=== PATIENT | female | born 1940 | race Caucasian/White ===

== ENCOUNTER → 2019-08-29 13:26 | Outpatient (CLI) | payer MEDICARE, OTHER, SELFPAY ==
--- NOTE | 2019-08-29 | DI.MRI.S_ITS ---
PROCEDURE: MR KNEE RT WO CON INDICATIONS: Pain in right knee TECHNIQUE: Noncontrast sagittal PD fast spin echo and T2 fast spin echo with fat saturation, sagittal 3-D FLASH with fat saturation; coronal T1 spin echo and PD fast spin echo with fat saturation, and axial PD fast spin echo with fat saturation through the knee. COMPARISON: [facility], MR, RIGHT KNEE, 04/05/2008, 14:48. [facility], CR, XR KNEE 4+ VIEWS RIGHT, 08/07/2019, 14:06. FINDINGS: Image quality: Excellent. Menisci: Linear horizontal high T2 signal intensity within the posterior horn medial meniscus is present, demonstrating inferior articular surface extension, as before, indicating horizontal tearing. Amorphous high signal intensity within the lateral meniscal body is present, demonstrating superior and inferior articular surface extension, indicating degenerative tearing. Cruciate ligaments: The anterior and posterior cruciate ligaments appear intact. Medial structures: The medial collateral ligament appears intact. Visualized portions of the pes anserinus tendons appear normal. No abnormal bursal fluid. Lateral structures: The lateral collateral ligament, long and short heads of the biceps femoris tendon appear intact. The popliteus tendon appears normal. Iliotibial band appears normal. Anterior structures: The quadriceps and patellar tendons appear intact. Patellar alignment is normal. No femoral trochlear dysplasia or ventral trochlear prominence. No edema in the infrapatellar fat pad. Bones and cartilage: No bone marrow contusions or fractures. There is moderate degenerative marrow edema within the anterior and posterior weightbearing aspects of the medial tibial plateau. Mild degenerative marrow edema within the patellar apex, as well as the medial and lateral patellar facets. Moderate tricompartmental periarticular osteophyte formation. Severe diffuse articular cartilage loss overlies the weightbearing aspects of the medial femoral condyle and medial tibial plateau. Mild articular cartilage loss diffusely overlies the weightbearing aspects of the lateral femoral condyle and lateral tibial plateau. Severe articular cartilage loss overlies the patellar apex, as well as the adjacent portions of the medial and lateral patellar facets. Joint space: There is a small knee joint effusion and a trace Parker's cyst. Small ganglion cyst along the popliteus. Multiple intra-articular loose bodies, predominantly located within the anterior aspect of the lateral compartment, new since the prior examination. Largest of these measures roughly 10 mm diameter. Normal appearing synovial plicae are incidentally noted. IMPRESSION: 1. Progressive tricompartmental osteoarthritis with associated articular cartilage loss. 2. No significant change in posterior horn medial meniscal tearing. 3. New degenerative tearing of the lateral meniscus. 4. Knee joint effusion, and intra-articular loose bodies. Dictated by: Aleja yLnch M.D. on 08/29/2019 at 14:55 Approved by: Aleja Lynch M.D. on 08/29/2019 at 15:00
== END ==
PROVIDERS: Family Provider Family Medicine; PCP Family Medicine; Visit Provider Orthopaedic Surgery
DX: M25.561 Pain in right knee (principal); M17.11 Unilateral primary osteoarthritis, right knee; S83.281A Other tear of lateral meniscus, current injury, right knee, initial encounter; S83.241A Other tear of medial meniscus, current injury, right knee, initial encounter; M25.461 Effusion, right knee
CPT/HCPCS: 73721

== ENCOUNTER → 2019-09-20 13:12 | Outpatient (CLI) | payer MEDICARE, OTHER, SELFPAY ==
[2019-09-20 13:44] LABS: Bacteria Urine None Seen; RBC Urine None Seen (0-5/HPF)
[2019-09-20 15:12] LABS: Hematocrit 40.5 % (36-46); Hemoglobin 13.5 g/dL (12.0-16.0); Mean Corpuscular HGB Conc 33.4 % (30-36); Mean Corpuscular Hemoglobin 30.1 PG (26-34); Mean Corpuscular Volume 90.2 fL (80-100); Platelet Count 273 X10^3/uL (150-400); Red Blood Cell Count 4.49 X10^6/uL (4.0-5.2); Red Cell Distribution Width 14.2 % (11.6-14.8); White Blood Cell Count 9.4 X10^3/uL (4.5-11.0)
[2019-09-20 15:24] LABS: Hemoglobin A1C% w Est Avg Glu 5.3 % (4.0-6.0)
[2019-09-20 15:28] LABS: Appearance Urine UA SL CLOUDY; Bilirubin Urine UA NEGATIVE (NEGATIVE); Color Urine UA YELLOW; Glucose Urine UA NEGATIVE (Negative); Ketones Urine UA NEGATIVE (NEGATIVE); Leukocyte Esterase Urine UA 2+ (NEGATIVE); Nitrite Urine UA NEGATIVE (Negative); Occult Blood Urine UA NEGATIVE (Negative); Protein Urine UA NEGATIVE (Negative); Urobilinogen Urine UA 0.2 E.U./dL (0.2)
[2019-09-20 15:35] LABS: Culture Indicated Urine Cult Not Indicated; Squamous Epithelial Cell Urine 5-10 /HPF (0-5/HPF); WBC Urine 5-10/HPF (0-5/HPF)
[2019-09-20 16:17] LABS: Blood Urea Nitrogen 12 mg/dL (7-17); Calcium 9.3 mg/dL (8.4-10.2); Carbon Dioxide 28 mmol/L (22-32); Chloride 103 mmol/L (98-107); Estimated Glomerular Filt Rate > 60.0 mL/min (>60); Glucose 95 mg/dL (80-110); HEMOLYSIS < 15 (0-50); Potassium 4.1 mmol/L (3.4-5.1); Sodium 138 mmol/L (137-145)
== END ==
PROVIDERS: Family Provider Family Medicine; PCP Family Medicine; Visit Provider Orthopaedic Surgery
DX: Z01.818 Encounter for other preprocedural examination (principal); N39.0 Urinary tract infection, site not specified; R73.9 Hyperglycemia, unspecified
CPT/HCPCS: 36415; 80048; 81001; 83036; 85027; 93005; 93010

== ENCOUNTER 2019-11-10 12:13 | Observation (INO) | payer MEDICARE, OTHER, SELFPAY ==
[2019-10-26 09:52] VITALS: BMI 31.4
[2019-11-09] VITALS (11 sets, daily range): BP systolic 101–126; BP diastolic 39–74; PULSE 76–93; RESP 14–18; TEMP 36.2–36.9; O2SAT 92–98; BMI 30.6
--- NOTE | 2019-11-09 06:00 | DI.RAD.S_ITS ---
PROCEDURE: XR KNEE RT 1TO2V INDICATIONS: Postop right total knee arthroplasty TECHNIQUE: 2 view(s) of the knee acquired. COMPARISON: None. FINDINGS: Bones: Patient is status post knee joint arthroplasty. Hardware components are in expected positions. Visualized bony structures are intact. Soft tissues: Overlying postoperative changes are noted. IMPRESSION: Normal alignment after right total knee arthroplasty with a surgical drain overlying the operative bed. Dictated by: Aly Marin M.D. on 11/09/2019 at 13:40 Approved by: Aly Marin M.D. on 11/09/2019 at 13:40
[2019-11-09] MEDS: ACETAMINOPHEN 325 MG TABLET 975 MG PO (09:08)
[2019-11-09] MEDS: PREGABALIN 75 MG CAPSULE PO (09:09)
[2019-11-09] MEDS: CELECOXIB 200 MG CAPSULE PO (09:09)
[2019-11-09] MEDS: LACTATED RINGERS 1,000 ML 42 ML IV (09:21)
[2019-11-09] MEDS: VANCOMYCIN 1,000 MG/200 ML PIGGYBACK 200 MG IV ×2 (09:35→21:34)
--- NOTE | 2019-11-09 10:17 | P.OP_ITS ---
Operative Date/Time/Diagnoses Date of procedure: 11/09/19 Time of procedure: 10:58 Pre-op diagnosis: Severe right knee OA Post-op diagnosis: same Procedure & Clinicians Procedure: Right total knee arthroplasty Same procedure as scheduled: Yes Indications: The patient has had progressively worsening right knee pain with radiographic changes consistent with arthritis. Non-operative management has failed and the patient has requested total knee replacement. The risks, benefits and alternatives to surgery were discussed with the patient prior to proceeding. Risks discussed included, but were not limited to, failure to relieve pain, stiffness, infection, nerve damage, deep venous thrombosis, pulmonary embolism, stroke, coma, heart attack, permanent paralysis and , as well as the potential need for eventual revision of the prosthetic. Surgeon: Jeni Vargas [employer] Worker: Frandy Matt Anesthesia Type: General Operative Notes Findings: Severe right knee osteoarthritis, good stability Closure Type: primary Specimen(s): none sent Prosthetic devices, grafts, tissues, transplants, or devices: [facility] size 7 femur, size 6 tibia, +9 poly, 38 mm oval patella Applied: drain(s) Estimated Blood Loss (mL): 250 Blood products transfused: none Tourniquet time (min): 69 Procedure in detail: The patient was seen in the pre-operative area, where the patient identified the right knee as the operative site and this was marked with my initials. The patient received pre-operative antibiotics, and was taken to the operating room and placed on the operative table in the supine position. After satisfactory anesthesia, a multimedia editor out was performed. The right leg was encircled with a tourniquet about the proximal thigh, and the leg was prepared from the toes to the tourniquet with ChloroPrep in the usual fashion and draped through sterile drapes. The leg was elevated and exsanguinated with Eschmark bandage and the tourniquet inflated to [250] mmHg pressure. The knee was approached through an approximately 18 cm incision centered over the patella and carried into the knee through a medial parapatellar arthrotomy. A portion of the medial and lateral meniscus was resected. Soft tissue was carefully mobilized around the patella the patella was measured with a caliper. Bone was resected from the patella and the patellar height was reconstituted with up an appropriate sized patellar component. A cover was then placed on the patella. A small amount of additional medial and lateral meniscus was resected. The visionare guide fit well to the distal femur. It looked like an appropriate distal femoral cut and the cut was made without difficulty. The rotation was assessed and the appropriate size femoral guide was placed on the distal femur and finishing cuts were made. There was no evidence of notching. The anterior, posterior and chamfer cuts were then made. The posterior osteophytes and soft tissues were then removed. The posterior capsule was injected with part of a mixture of 60 ml 0.25% Marcaine mixed with 20 ml Exparel for post operative pain control. The remainder of this mixture was injected into the capsule and subcutaneous tissues during cement curing. The tibia was prepared and the visionaire guide fit well to the distal tibia. The rotation was assessed. The patient was placed in extension residual medial and lateral meniscus as well as any residual bone was carefully resected. [No] additional tibia was resected. Hemostasis was achieved especially posteriorly. Additional local was injected into the posterior capsule. The extension gap was assessed and additional releases for gap balancing were performed as necessary. It was checked with the gap butadiene converter operator. The femoral component was trial was placed and the notch was finished. Trial tibial and femoral components were then placed and the knee placed through a range of motion. Range of motion was [0-130], with good stability throughout the range. The trials were then removed, and the tibia was finished. The bone was prepared with pulsatile lavage, and dried with a sponge. Cement was applied and the final prosthetics placed. Excess cement was removed during and after cement curing. A brief Betadine soak was performed. After confirming there was no extruded cement posteriorly, the final tibial insert was placed. The knee was copiously irrigated and the tourniquet deflated. Hemostasis was obtained with the Bovie. A drain was placed and brought out superolaterally. The capsule was closed with interrupted Vicryl suture. The subcutaneous layer was closed with barbed sutures, and the skin with a running 3-0 V-Lock suture and Surgical glue. An Aquacel Ag dressing was applied and the patient was taken to recovery having tolerated the procedure well. Complications: none Post-operative Condition: stable Disposition: Acute Care Plan for aftercare: The patient will be maintained on a standard total knee replacement protocol with weight bearing as tolerated. The patient will receive aspirin and sequential compression devices for DVT prophylaxis. The patient will be discharged home when safe for the home environment.
--- NOTE | 2019-11-09 10:17 | PM.PREOP ---
Pre-operative Note Interval Note History & Physical reviewed/Exam performed by Physician: Yes Changes to H&P: No
[2019-11-09] MEDS: CLINDAMYCIN 900 MG/50 ML PIGGYBACK 50 MG IV (10:29)
[2019-11-09] MEDS: TRANEXAMIC ACID 1,000 MG VIAL 1000 MG INJ ×2 (10:35→12:20)
--- NOTE | 2019-11-09 11:00 | SUR.OPER ---
Supine on padded OR bed, head on pillow, arms secured on padded arm boards at <90 degrees abduction, legs uncrossed, safety belt at thigh, tape over blanket over lower legs.
[2019-11-09] MEDS: BUPIVACAINE LIPOSOME 266 MG/20 ML VIAL INJ (11:09)
[2019-11-09] MEDS: BUPIVACAINE 0.25% W/ EPI (PF) 10 ML VIAL 30 ML INJ (11:10)
[2019-11-09] MEDS: ACETAMINOPHEN 325 MG TABLET 650 MG PO ×2 (14:38→21:34)
[2019-11-09] MEDS: IBUPROFEN 400 MG TABLET PO ×4 (14:39→23:24)
[2019-11-09] MEDS: LACTATED RINGERS 1,000 ML 125 ML IV ×2 (14:39→23:23)
--- NOTE | 2019-11-09 15:00 | PC.NURSE ---
PT ARRIVED TO ICU ( FLOOR CARE PT) SHE REPORTS NO PAIN AT ALL BUT DOES FEEL FAR AWAY, SHE HAS NOT VOIDED YET AND HAS LR AT 125CC/H, LUNGS CLEAR WITH GOOD CMS TO RIGHT LEG- VITAL SIGNS STABLE AND AFEBRILE. PT WITH 2 DAUGHTERS TO HELP POST OP AT HOME BUT SHE DOES STATE THAT SHE HAS 18 STEPS INTO HER HOUSE- TAKING PO WELL
--- NOTE | 2019-11-09 16:49 | PT.IIE ---
Current Diagnoses Unilateral primary osteoarthritis, right knee (11/09/19) Surgery Performed Operation Date: 11/09/19 10:45 Actual Procedures p Total Knee Arthroplasty(Right) - Jeni Vargas MD Surgical History (Last Updated 10/26/19 @ 10:23 by Emily Barron, RN) History of arthroscopy of both knees (Acute) History of (Acute) History of esophagogastroduodenoscopy (EGD) (Acute) Hx laparoscopic cholecystectomy (Acute) Hx of appendectomy (Acute) Hx of bilateral cataract extraction (Acute) Hx of vein stripping (Acute) S/P cervical spinal fusion (Acute 09/07/16) Medical History (Last Updated 10/26/19 @ 10:44 by Emily Barron RN) Asthma due to environmental allergies (Acute) Easy bruisability (Acute) Eczema (Acute) GERD (gastroesophageal reflux disease) (Acute) Hoarseness (Acute) Kidney stones (Acute) Memory deficit (Acute) Migraine headache (Acute) JORGE (obstructive sleep apnea) (Acute) Pneumonia (Acute) Physical Therapy Inpatient Evaluation/Re-Eval M1 PT/OT-IP Prior Functional Status Start: 11/09/19 15:00 Freq: NEEDED Status: Active Protocol: Document 11/09/19 16:03 AW (Rec: 11/09/19 16:48 AW [id number]) Medical Review Prior Functional Status Medical History Reviewed Yes Communication WNL Mobility and Gait Pt's knee pain intensified in August at which time she used crutches intermittently, but she is an independent ambulator at baseline. Activities of Daily Living and IADL's Independent Prior Functional Level (Other details) Pt drives a car and a tractor on her [place] Social History Household Members none Living Arrangements House Number of Floors (Floors) Two Floors Number of Stairs To Enter/Railing? House is in a flood zone, so is raised. stretcher leveler operator helper is 16 steps up (8 + landing + 8) with wide bilateral rails. The stairs are 8 feet wide. Once inside, pt plans to live on the main level as long as needed. Home Environment High Toilet,Walk in Shower Home Equipment Front Wheel Walker,Four Wheel Walker,Straight Cane,Shower Seat without Backrest,Elevator Troubleshooter Additional Social History Comment Jaleesa lives alone but her daughter, Rodrick, will stay with her for one week at discharge. Rodrick provided care for her grandparents before their deaths and feels she has a good understanding of the pt's needs. Rodrick lives in [place]. Pt's other daughter, Jud, lives in [place]. M2 PT-IP Current Condition Start: 11/09/19 15:00 Freq: NEEDED Status: Active Protocol: Document 11/09/19 16:03 AW (Rec: 11/09/19 16:48 AW [id number]) Physical Therapy Current Condition Current Condition Evaluation Date 11/09/19 Treatment Diagnosis s/p R TKA, impaired mobility Onset Date 11/09/19 Weight Bearing Status Weight Bearing Status Weight Bear as Tolerated M3 PT-IP Subjective Start: 11/09/19 15:00 Freq: NEEDED Status: Active Protocol: Document 11/09/19 16:03 AW (Rec: 11/09/19 16:48 AW [id number]) Subjective Physical Therapy Visit Type Type Initial Evaluation Visit Start Time 15:10 Visit Stop Time 15:55 Total Visit Minutes 45 Notes Pt's daughter, Rodrick, present for mobility part of evaluation. Number of BINDING NICKER Visits 0 Physical Therapy Visit Comments Patient Comments Pt does not yet have full sensation but is willing to attempt mobilization with PT Patient Goals Pt hopes to discharge home with family assistance. Therapy Pain Assessment Pain When Pain Assessed During Mobility Pain Present Pain Present Denied Pain M4 PT-IP Mobility and Gait Start: 11/09/19 15:00 Freq: NEEDED Status: Active Protocol: Document 11/09/19 16:03 AW (Rec: 11/09/19 16:48 AW [id number]) PT-Bed Mobility Assessment Supine to Sit Supine to Sit Contact Guard Assistance,Head of Bed Elevated Sit to Supine Sit to Supine Contact Guard Assistance Scooting Scooting to Edge of Bed Minimal Assistance PT-Transfer Assessment Sit to and From Stand Sit to and from Stand Minimal Assistance Equipment Transfer Assistive Device Gait Belt,Front Wheeled Walker Orthotic/Prosthetic Devices or Brace: No Comments Mobility Comments Pt completed supine to sit at right side of bed CGA for support of the operative leg. During the transfer, pt began to complain of cramping sensation in bilateral hamstrings and groin. She required min A x 1 to scoot toward EOB, complaining of lack of sensation. In sitting, pt reported wooziness which subsided after one minute. She completed sit to stand with FWW min A x 1 but felt too dizzy to attempt ambulation. She was returned to sitting where her vitals were stable (BP 126/74 HR 78 before mobility, BP 119/632 HR 84 after standing attempt). Symptoms did not improve in sitting, so pt was returned to supine where symptoms resolved. Pt was positioned in the bed with ice packs applied, call light and table within reach, daughter visiting, and bed alarmed active for safety. Gait Assessment Comments Gait Comments Not assessed due to pt's dizziness symptoms Stair Climbing Assessment Comments Stair Climbing Comments Not assessed due to pt's dizziness symptoms PT-Balance Assessment Sitting Balance and Reactions Static Sitting Balance Ability Good Dynamic Sitting Balance Ability Good Standing Balance and Reactions Static Standing Balance Ability Fair Device Used FWW M5 PT-IP Objective Assessments Start: 11/09/19 15:00 Freq: NEEDED Status: Active Protocol: Document 11/09/19 16:03 AW (Rec: 11/09/19 16:48 AW [id number]) Orientation Orientation/Cognition Level of Alertness Alert Orientation Name,Day of Week,Place, Situation Language Function Ability No Deficits Noted Safety Awareness Understands Safety Issues Memory Description No Deficits Noted Comments Pt presents with signs of anxiety. Gross Range of Motion Upper Extremity ROM Assessment Within Functional Limits Lower Extremity ROM Assessment Right Impaired Strength Upper Extremity Strength Assessment Within Functional Limits Lower Extremity Strength Assessment Right Impaired Comments Strength Comments L LE grossly 4+/5 Coordination Assessment Gross Coordination Gross Coordination WNL Sensation Assessment Sensation Gross Sensation Right LE Impaired Light Touch Impaired Sensation Description Numbness Comments Sensation Comments Pt has not yet recovered full sensation after spinal. M6 PT-IP Treatment Start: 11/09/19 15:00 Freq: NEEDED Status: Active Protocol: Document 11/09/19 16:03 AW (Rec: 11/09/19 16:48 AW [id number]) Physical Therapy Treatment Exercises Exercises Ankle Pumps,Gluteal Sets,Quad Sets,Heel Slides Education Education Provided Precautions,Weight Bearing Status,Post-Op Packet,Safety Other Treatments Other Treatment Performed Educated pt and daughter on PT plan of care, post op exercises, and weightbearing status. M7 PT-IP Assessment and Plan Start: 11/09/19 15:00 Freq: NEEDED Status: Active Protocol: Document 11/09/19 16:03 AW (Rec: 11/09/19 16:48 AW [id number]) PT Summary Assessment and Plan Potential Rehabilitation Potential Good Status of Condition at Evaluation Evolving Summary Impairments Pain,ROM,Strength,Balance, Sensation,Bed Mobility, Transfers,Gait Assessment Summary Jaleesa is a 79 yo woman seen for PT evaluation on POD0 following R TKA. At baseline, she lives alone, is an independent ambulator, and is independent for all ADL/IADL's . Evaluation was limited due to pt's slow return of sensation and lightheadedness with mobility. In order to safely discharge home, pt will need to navigate 16 stairs. PT is unable to offer a discharge recommendation at this time. Will continue to assess. Pt's daughter, Rodrick, will be present to initiate caregiver training on 11/10 at 0900. Goals Bed Mobility Goal Independent Transfer Goal Standby Assistance,Front Wheeled Walker Gait Goal Standby Assistance,Front Wheel Walker Gait Distance 150 Other Goals - up/down 16 steps with unilateral rail and ICT BUSINESS ANALYST/CGA on opposite side Days to Meet Goals 5 Frequency of Treatment Frequency Of Treatment Twice a Day Treatment Plan Physical Therapy Treatment Plan Bed Mobility Training,Transfer Training,Gait Training, Therapeutic Exercise,Balance Retraining,Post Op Education, Discharge Planning,Hot or Cold Pack,Manual Therapy Other Recommendations and Next Treatment assess transfers and gait; Focus initiate caregiver training; attempt stairs if tolerated Recommendations To Nursing Amount of Assist Needed 1 Person Assist,2 Person Assist Discharge Recommendations PT Discharge Recommendations Home with 24/7 Assist, Outpatient PT Other Discharge Recommendations Tentatively home with 24/7 and outpatient PT based on limited assessment. Will continue to refine recommendation.
[2019-11-09] MEDS: OXYCODONE/ACETAMINOPHEN 5/325 TABLET 1 TAB PO (18:23)
[2019-11-09] MEDS: CYCLOBENZAPRINE 5 MG TABLET PO (18:37)
[2019-11-09] MEDS: DOCUSATE 100 MG CAPSULE PO (21:34)
[2019-11-09] MEDS: ASPIRIN EC 81 MG TABLET PO (21:35)
[2019-11-09] MEDS: LORazepam 1 MG TABLET PO (21:49)
[2019-11-10 04:55] LABS: Hematocrit 34.5 % (36-46); Hemoglobin 11.6 g/dL (12.0-16.0)
[2019-11-10 04:56] VITALS: BP 106/51; PULSE 80; RESP 18; TEMP 37.2; O2SAT 94
[2019-11-10] MEDS: IBUPROFEN 400 MG TABLET PO ×5 (06:45→21:50)
[2019-11-10 07:53] VITALS: BP 100/45; PULSE 81; RESP 16; TEMP 36.7; O2SAT 96
--- NOTE | 2019-11-10 07:56 | P.PN_ITS ---
Subjective Subjective Date Patient Seen: 11/10/19 Time Patient Seen: 07:56 Interval history: Hospital day 2, postop day 1 following right total knee arthroplasty by josé Vargas MD. Patient feels she is doing well. She did work briefly with physical therapy yesterday. It's been using ibuprofen 400 mg and Tylenol primarily for pain. She has had 1 dose of oxycodone. Hemovac noted drainage of 230, 115, 70 per shift and 45 during the past 2 hours. She is a [facility] patient. Scheduled go to [facility] in [place]. She does have a daughter who is going to be staying with her. Patient anticipates possible discharge home either later today or tomorrow morning. Exam Vital Signs (past 8 hours): - 11/10/19 04:56 11/10/19 07:53 Temperature 98.9 F 98.0 F Pulse Rate 80 81 Respiratory Rate 18 16 Blood Pressure 106/51 L 100/45 L Pulse Oximetry 94 96 Oxygen Delivery Method Room Air Oxygen Flow Rate 0 Narrative Exam Narrative: Alert, oriented no acute distress sitting in chair. Right leg. Kevin wrap an Aquacel dressing to right knee is dry without drainage or inflammation. Mild edema. Hemovac placed. No calf pain or swelling. Good pulses distally. Objective Labs Result Diagrams: 11/10/19 04:40 Labs: Laboratory Results - last 24 hr 11/09/19 11/10/19 13:15 04:40 Hgb 11.6 L Hct 34.5 L Nasal Screen MRSA (PCR) Negative for mrsa Assessment & Plan Post-op Postoperative Procedures: Procedures Operation Date: 11/09/19 10:45 Actual Procedures Side Surgeon p Total Knee Arthroplasty Right Jeni A MD Sam plan: Patient will continue working feet with PT today. Will keep Hemovac in place till home later today to see if drainage decreases. I anticipate discharge home either later today or tomorrow morning.
[2019-11-10] MEDS: ACETAMINOPHEN 325 MG TABLET 650 MG PO ×3 (08:19→21:50)
[2019-11-10] MEDS: ASPIRIN EC 81 MG TABLET PO ×2 (08:21→21:50)
[2019-11-10] MEDS: OXYCODONE/ACETAMINOPHEN 5/325 TABLET 1 TAB PO ×2 (08:23→12:46)
[2019-11-10] MEDS: DOCUSATE 100 MG CAPSULE PO ×2 (08:23→21:50)
[2019-11-10] MEDS: POLYETHYLENE GLYCOL 3350 17 GM POWD.PACK PO (08:41)
[2019-11-10] MEDS: CYCLOBENZAPRINE 5 MG TABLET PO ×2 (08:41→18:23)
--- NOTE | 2019-11-10 09:55 | PC.NURSE ---
PT MEDICATED THIS AM WITH BREAKFAST MEAL AND WORKED WITH PHYSICAL THERAPY- SHE DID WELL AND COMPLETED STAIRS, SALINE LOCKED AND HEMOVAC REMAINS UNTIL THIS AFTERNOON
[2019-11-10 11:55] VITALS: BP 113/53; PULSE 90; RESP 16; TEMP 37.1; O2SAT 95
--- NOTE | 2019-11-10 14:07 | PC.NURSE ---
PT AMBULATING WITH ONLY SBA AND USE OF WALKER- PERCOCET EFFECTIVE FOR PAIN ALONG WITH ROUTINE SCHEDULED IBUPROFEN/TYLENOL- VOIDING WELL AND TAKING PO WITHOUT PROBLEM- HEMOVAC REMOVED AND SMALL DRESSING PLACED THEN WRAPPED AGAIN WITH VIOLET WRAP TO PROVIDE COMPRESSION OF RIGHT LOWER EXTREMITY
--- NOTE | 2019-11-10 14:16 | CM.DANOTE ---
DCP/Assessment: Reviewed chart. Patient is 79yr old female admitted to [facility] for right TKA performed on 11-09-[address] Vargas. PCP is Dr. Taylor. Primary payor is 1)Medicare 2)[facility]. Met with patient explained CM/SW role. Patient up in chair at time of visit. Patient reports that she resides alone and plans to discharge home when medically stable. Patient has 2 supportive daughter's whom plan to help during patient's recovery. 1 daughter/Rodrick at bedside and confirms that she will be staying with patient at her residence for a few weeks. Patient has all needed DME. Outpatient therapy arranged with [facility]. No additional needs identified at this time. P: Home when medically stable. FAUSTINA Rodriguez Discharge Planning/Care Management CM Discharge Assessment Start: 11/10/19 14:07 Freq: Status: Active Protocol: Document 11/10/19 14:07 KJS (Rec: 11/10/19 14:15 KJS [id number]) Discharge Planning Assessment Assigned Salesperson Corsets FAUSTINA Rodriguez Contact Information Rodrick (daughter) [phone] Advance Directives? No Advance Directives on File No History Provided By Patient,Family Member,Medical Record Prior Living Arrangements House Household Members none Independent with ADL's Yes Is patient alert and oriented? Yes Caregiver for Another No DME Already Rented / Owned FWW / Walker Patient/Family Preference OP PT Therapy Barriers to Discharge No Discharge Plan Home Transportation Arrangement Family to provide transport. Whiteboard Updated in Patient Room with Yes name and ext. # of Salesperson Corsets Review Status In Process Next Review Type Continued Stay Review Pre-Anesthesia Assessment Start: 10/26/19 09:52 Freq: Status: Complete Protocol: Document 10/26/19 09:52 CAB (Rec: 10/26/19 10:32 CAB [id number]) Pre-Anesthesia Assessment Patient Information Reviewed Via Phone Assessment Assessment Completed With Patient Diagnostic Results BMP/CMP,CBC,EKG Comment Labs/EKG @ 09/20/19 Primary Care Provider Jhon Taylor Seen Specialist in Last 12 Months Yes Specialist Seen Orthopedist,Urologist Primary Language Bengali Pastry Cook Helper Required No Height 177.8 cm Weight 99.337 kg Body Mass Index (BMI) 31.4 Hearing Ability Normal Visual Assist Magnifying Glass Dentition Type Teeth, Natural Present Barriers to Learning Auditory,Memory Other Aids No Hx Anesthesia Reactions Yes: Hypotension s/p kidney surgery, trouble waking up after neck fusion Hx Family Anesthesia Reaction No Hx Malignant Hyperthermia No Hx Blood Transfusions Yes: 4 units r/t hemorrhage 1975 Hx Blood Transfusion Reaction No Anesthesia Review Requested No alcohol intake current alcohol intake frequency holidays/special occasions only Smoking Status Never smoker Substance Use Type does not use Pain Present Pain Reported Musculoskeletal Symptoms Abnormal Gait,Back Pain, Difficulty Walking,Joint Pain, Limited Range of Motion,Muscle Weakness,Neck Pain History of Falling (Recent or History of Yes ) Patient is completely paralyzed or No completely immobile Mental Status Oriented to own ability Is patient on oxygen? No Does patient have AMBRIZ/SOB Yes: r/t Asthma Hx Sleep Apnea No Currently Taking a Beta Mehrdad No Can You Climb a Flight of Stairs Without Yes SOB Hx Chest Pain No Hx SOB Yes: r/t Asthma Hx Syncope or Dizziness No Anti-Coagulant Therapy No Has a Assistant Child Care Teacher No Cardiac Testing No Hx Pacemaker/ICD No Pacemaker Rep Required? No Cardiac Clearance Received Not Applicable Diet Type At Home Regular dysphagia No Bladder Pattern Frequency Urinary Catheter Present No Hx Urinary Self Catheterization No Diabetes No Patient No Lactating No Presence of External or Internal Medical Yes: Bilat eye lens, neck Devices fusion hardware Have you traveled outside the [facility] States in the last 30 days? Marital Status / Lives With none Prior Living Arrangements House Number of Floors (Floors) 3 or More Floors Support System Child/Children Does the Patient Have Assistance After Yes Surgery Patient Discharge Plan Description Return Home Comment Pt advised 1-2 night length of stay per surgeon's office Feels Safe in Current Environment Yes Been Physically Hurt or Threatened By a No Person in Current Environment Do you have thoughts of harming yourself None or others? Are you currently considering suicide? No Do you have a plan to hurt yourself or No Plan others? Do You Have Any Spiritual Beliefs That No May Affect Your HC Choices? Do You Have Any Cultural Practices That No May Affect Your HC Choices? Who Can We Speak to About Patient's Care Family, friends Identifying Code for Release of Patient Declines to issue Information Health Care Proxy/Next of Kin Jud (daughter) Rodrick ( daughter) Health Care Proxy Phone Number Jud: [phone] Rodrick: [phone] Emergency Contact Name Jud (daughter) Rodrick ( daughter) Emergency Contact Phone Number Jud: [phone] Rodrick: [phone] Advance Directives? No Power of Assembler Installer Structures Yes: Pt unsure which daughter it is PAC Instructions Do not shave/clip surgical site,Durable medical equipment ,Medications to take/avoid, Nasal antibiotic,No ETOH/ petroleum product on skin DOS, NPO,Post-op transportation,Pre -surgical wash,Sturdy shoes/ comfortable clothes,Do not bring valuables and remove jewelry
--- NOTE | 2019-11-10 14:28 | PT.IPTN ---
Current Diagnoses Unilateral primary osteoarthritis, right knee (11/09/19) Surgery Performed Operation Date: 11/09/19 10:45 Actual Procedures p Total Knee Arthroplasty(Right) - Jeni Vargas MD Physical Therapy Treatment Note M2 PT-IP Current Condition Start: 11/09/19 15:00 Freq: NEEDED Status: Active Protocol: Document 11/09/19 16:03 AW (Rec: 11/09/19 16:48 AW [id number]) Physical Therapy Current Condition Current Condition Evaluation Date 11/09/19 Treatment Diagnosis s/p R TKA, impaired mobility Onset Date 11/09/19 Weight Bearing Status Weight Bearing Status Weight Bear as Tolerated M3 PT-IP Subjective Start: 11/09/19 15:00 Freq: NEEDED Status: Active Protocol: Document 11/10/19 09:00 LJ (Rec: 11/10/19 14:28 LJ [id number]) Subjective Physical Therapy Visit Type Type Treatment Note Visit Start Time 09:00 Visit Stop Time 09:44 Total Visit Minutes 44 Number of ALCOHOLISM WORKER Visits 1 Physical Therapy Visit Comments Patient Comments Pt has full sensation of LE and is wanting to have caregiver training with her daughter who is present Patient Goals Pt hopes to discharge home with family assistance. Therapy Pain Assessment Pain When Pain Assessed During Mobility Pain Present Pain Present Pain Reported M4 PT-IP Mobility and Gait Start: 11/09/19 15:00 Freq: NEEDED Status: Active Protocol: Document 11/10/19 09:00 LJ (Rec: 11/10/19 14:28 LJ [id number]) PT-Transfer Assessment Sit to and From Stand Sit to and from Stand Standby Assistance,Contact Guard Assistance,Use of Upper Extremities Equipment Transfer Assistive Device Gait Belt,Front Wheeled Walker Transfers Transfer Destination Chair Transfer Technique Forward/Backward Scoot Transfer Ability Level of Assist Standby Assistance,Contact Guard Assistance,Use of Upper Extremities Comments Mobility Comments Pt in chair needing cueing for hand placement on chair rather than on FWW for assist in standing. Pt c/o pain but willing to ambulate in hallway . Minimal cueing for FWW use and posture while using it. Pt is steady on her feet when moving around the room and in hallway. Gait Assessment Gait Gait Assistance Required: Standby Assistance,Contact Guard Assist Distance (Feet) 400 Able to Maintain Weight Bearing Status Yes During Gait Assistive Devices Assistive Device Gait Belt,Front Wheeled Walker Orthotic/Prosthetic Devices or Brace: No Gait Deviations General Gait Pattern Antalgic,Decreased Stride Length,Decreased Feet Clearance Factors Limiting Gait Function Factors Limiting Gait Function Decreased Activity Tolerance, Decreased Strength,Limited Range of Motion,Pain,Poor Balance Comments Gait Comments Pt amabulated CGA-SBA from ICU to public stairs next to emergency entrance and returned 400+ feet. Good attempt with normalizing gait pattern paying close attention to heel strike, knee flexion, and foot clearance. Stair Climbing Assessment Evaluation Level of Assist On Stairs Contact Guard Assistance,1 Person Assistance Devices Stair Climbing Assistive Devices Left Railing,Right Railing Technique/Endurance Stair Climbing Direction Ascend and Descend Stair Climbing Technique Step to Step Number of Steps Climbed 16 Stair Climbing Set # Repetitions (reps) 1 Comments Stair Climbing Comments Pt up/down hallway stairs with use of railing mostly on right side. Able to climb with steady step to pattern paying attention to foot placement and pacing. M5 PT-IP Objective Assessments Start: 11/09/19 15:00 Freq: NEEDED Status: Active Protocol: Document 11/09/19 16:03 AW (Rec: 11/09/19 16:48 AW [id number]) Orientation Orientation/Cognition Level of Alertness Alert Orientation Name,Day of Week,Place, Situation Language Function Ability No Deficits Noted Safety Awareness Understands Safety Issues Memory Description No Deficits Noted Comments Pt presents with signs of anxiety. Gross Range of Motion Upper Extremity ROM Assessment Within Functional Limits Lower Extremity ROM Assessment Right Impaired Strength Upper Extremity Strength Assessment Within Functional Limits Lower Extremity Strength Assessment Right Impaired Comments Strength Comments L LE grossly 4+/5 Coordination Assessment Gross Coordination Gross Coordination WNL Sensation Assessment Sensation Gross Sensation Right LE Impaired Light Touch Impaired Sensation Description Numbness Comments Sensation Comments Pt has not yet recovered full sensation after spinal. M6 PT-IP Treatment Start: 11/09/19 15:00 Freq: NEEDED Status: Active Protocol: Document 11/10/19 09:00 LJ (Rec: 11/10/19 14:28 LJ [id number]) Physical Therapy Treatment Exercises Exercises Ankle Pumps,Gluteal Sets,Quad Sets,Heel Slides Education Education Provided Precautions,Safety Other Treatments Other Treatment Performed Educated pt and daughter on PT plan of care, post op exercises, and weightbearing status. Performed caregiver training with one of the daughters M7 PT-IP Assessment and Plan Start: 11/09/19 15:00 Freq: NEEDED Status: Active Protocol: Document 11/10/19 09:00 RAVEN (Rec: 11/10/19 14:28 RVAEN [id number]) PT Summary Assessment and Plan Potential Rehabilitation Potential Good Status of Condition at Evaluation Evolving Summary Impairments Pain,ROM,Strength,Balance,Gait ,Activity Tolerance Assessment Summary pt did an exceptional job with gait normalization and stair training ambulating 400+ feet then ascending and descending 15 stairs with one railing. Pt 's daughter present for caregiver training. Pt has completed all goals for discharge. Goals Bed Mobility Goal Independent Transfer Goal Standby Assistance,Front Wheeled Walker Gait Goal Standby Assistance,Front Wheel Walker Gait Distance 150 Other Goals - up/down 16 steps with unilateral rail and POSTING CLERK/CGA on opposite side Frequency of Treatment Frequency Of Treatment Twice a Day Treatment Plan Physical Therapy Treatment Plan Bed Mobility Training,Transfer Training,Gait Training, Therapeutic Exercise,Balance Retraining,Post Op Education, Discharge Planning,Hot or Cold Pack,Manual Therapy Recommendations To Nursing Amount of Assist Needed Standby Assistance,1 Person Assist Discharge Recommendations PT Discharge Recommendations Home with 07/06 Assist, Outpatient PT
[2019-11-10 16:15] VITALS: BP 132/57; PULSE 81; RESP 16; TEMP 36.5; O2SAT 96
--- NOTE | 2019-11-10 17:04 | PT.IPTN ---
Current Diagnoses Unilateral primary osteoarthritis, right knee (11/09/19) Surgery Performed Operation Date: 11/09/19 10:45 Actual Procedures p Total Knee Arthroplasty(Right) - Jeni Vargas MD Physical Therapy Treatment Note M2 PT-IP Current Condition Start: 11/09/19 15:00 Freq: NEEDED Status: Active Protocol: Document 11/09/19 16:03 AW (Rec: 11/09/19 16:48 AW [id number]) Physical Therapy Current Condition Current Condition Evaluation Date 11/09/19 Treatment Diagnosis s/p R TKA, impaired mobility Onset Date 11/09/19 Weight Bearing Status Weight Bearing Status Weight Bear as Tolerated M3 PT-IP Subjective Start: 11/09/19 15:00 Freq: NEEDED Status: Active Protocol: Document 11/10/19 17:03 LJ (Rec: 11/10/19 17:04 LJ [id number]) Subjective Physical Therapy Visit Type Type Patient Refusal Notes Pt states she was just up with nursing for a walk M4 PT-IP Mobility and Gait Start: 11/09/19 15:00 Freq: NEEDED Status: Active Protocol: Document 11/10/19 09:00 LJ (Rec: 11/10/19 14:28 LJ [id number]) PT-Transfer Assessment Sit to and From Stand Sit to and from Stand Standby Assistance,Contact Guard Assistance,Use of Upper Extremities Equipment Transfer Assistive Device Gait Belt,Front Wheeled Walker Transfers Transfer Destination Chair Transfer Technique Forward/Backward Scoot Transfer Ability Level of Assist Standby Assistance,Contact Guard Assistance,Use of Upper Extremities Comments Mobility Comments Pt in chair needing cueing for hand placement on chair rather than on FWW for assist in standing. Pt c/o pain but willing to ambulate in hallway . Minimal cueing for FWW use and posture while using it. Pt is steady on her feet when moving around the room and in hallway. Gait Assessment Gait Gait Assistance Required: Standby Assistance,Contact Guard Assist Distance (Feet) 400 Able to Maintain Weight Bearing Status Yes During Gait Assistive Devices Assistive Device Gait Belt,Front Wheeled Walker Orthotic/Prosthetic Devices or Brace: No Gait Deviations General Gait Pattern Antalgic,Decreased Stride Length,Decreased Feet Clearance Factors Limiting Gait Function Factors Limiting Gait Function Decreased Activity Tolerance, Decreased Strength,Limited Range of Motion,Pain,Poor Balance Comments Gait Comments Pt amabulated CGA-SBA from ICU to public stairs next to emergency entrance and returned 400+ feet. Good attempt with normalizing gait pattern paying close attention to heel strike, knee flexion, and foot clearance. Stair Climbing Assessment Evaluation Level of Assist On Stairs Contact Guard Assistance,1 Person Assistance Devices Stair Climbing Assistive Devices Left Railing,Right Railing Technique/Endurance Stair Climbing Direction Ascend and Descend Stair Climbing Technique Step to Step Number of Steps Climbed 16 Stair Climbing Set # Repetitions (reps) 1 Comments Stair Climbing Comments Pt up/down hallway stairs with use of railing mostly on right side. Able to climb with steady step to pattern paying attention to foot placement and pacing. M5 PT-IP Objective Assessments Start: 11/09/19 15:00 Freq: NEEDED Status: Active Protocol: Document 11/09/19 16:03 AW (Rec: 11/09/19 16:48 AW [id number]) Orientation Orientation/Cognition Level of Alertness Alert Orientation Name,Day of Week,Place, Situation Language Function Ability No Deficits Noted Safety Awareness Understands Safety Issues Memory Description No Deficits Noted Comments Pt presents with signs of anxiety. Gross Range of Motion Upper Extremity ROM Assessment Within Functional Limits Lower Extremity ROM Assessment Right Impaired Strength Upper Extremity Strength Assessment Within Functional Limits Lower Extremity Strength Assessment Right Impaired Comments Strength Comments L LE grossly 4+/5 Coordination Assessment Gross Coordination Gross Coordination WNL Sensation Assessment Sensation Gross Sensation Right LE Impaired Light Touch Impaired Sensation Description Numbness Comments Sensation Comments Pt has not yet recovered full sensation after spinal. M6 PT-IP Treatment Start: 11/09/19 15:00 Freq: NEEDED Status: Active Protocol: Document 11/10/19 09:00 RAVEN (Rec: 11/10/19 14:28 [id number]) Physical Therapy Treatment Exercises Exercises Ankle Pumps,Gluteal Sets,Quad Sets,Heel Slides Education Education Provided Precautions,Safety Other Treatments Other Treatment Performed Educated pt and daughter on PT plan of care, post op exercises, and weightbearing status. Performed caregiver training with one of the daughters M7 PT-IP Assessment and Plan Start: 11/09/19 15:00 Freq: NEEDED Status: Active Protocol: Document 11/10/19 09:00 RAVEN (Rec: 11/10/19 14:28 [id number]) PT Summary Assessment and Plan Potential Rehabilitation Potential Good Status of Condition at Evaluation Evolving Summary Impairments Pain,ROM,Strength,Balance,Gait ,Activity Tolerance Assessment Summary pt did an exceptional job with gait normalization and stair training ambulating 400+ feet then ascending and descending 15 stairs with one railing. Pt 's daughter present for caregiver training. Pt has completed all goals for discharge. Goals Bed Mobility Goal Independent Transfer Goal Standby Assistance,Front Wheeled Walker Gait Goal Standby Assistance,Front Wheel Walker Gait Distance 150 Other Goals - up/down 16 steps with unilateral rail and POLICE CAPTAIN/CGA on opposite side Frequency of Treatment Frequency Of Treatment Twice a Day Treatment Plan Physical Therapy Treatment Plan Bed Mobility Training,Transfer Training,Gait Training, Therapeutic Exercise,Balance Retraining,Post Op Education, Discharge Planning,Hot or Cold Pack,Manual Therapy Recommendations To Nursing Amount of Assist Needed Standby Assistance,1 Person Assist Discharge Recommendations PT Discharge Recommendations Home with 07/06 Assist, Outpatient PT
[2019-11-10] MEDS: OXYCODONE IR 5 MG TABLET PO (18:23)
[2019-11-10 20:44] VITALS: BP 118/55; PULSE 82; RESP 17; O2SAT 95
[2019-11-10] MEDS: LORazepam 1 MG TABLET PO (21:50)
[2019-11-11] MEDS: IBUPROFEN 400 MG TABLET PO ×4 (01:31→12:48)
[2019-11-11] MEDS: OXYCODONE IR 5 MG TABLET PO ×3 (01:44→12:49)
[2019-11-11 01:53] VITALS: BP 129/60; PULSE 98; RESP 16; TEMP 36; O2SAT 96
[2019-11-11 06:08] VITALS: BP 118/62; PULSE 87; RESP 16; TEMP 37.2; O2SAT 95
[2019-11-11 07:37] VITALS: BP 112/51; PULSE 86; RESP 16; TEMP 36.9; O2SAT 95
[2019-11-11] MEDS: ACETAMINOPHEN 325 MG TABLET 650 MG PO (08:06)
[2019-11-11] MEDS: POLYETHYLENE GLYCOL 3350 17 GM POWD.PACK PO (08:06)
[2019-11-11] MEDS: DOCUSATE 100 MG CAPSULE PO (08:06)
[2019-11-11] MEDS: ASPIRIN EC 81 MG TABLET PO (08:06)
--- NOTE | 2019-11-11 10:15 | P.DS_ITS ---
History of Present Illness History of Present Illness Date Patient Seen: 11/11/19 Time Patient Seen: 10:15 Chief complaint: [address] Right TKA Narrative: Patient's pain is been moderate to severe. Denies fever chills. No shortness of breath or chest pain. Patient has been up working with physical therapy and has also worked on climbing stairs. Patient has her daughter home to assist her. Discharge Providers Provider Date of admission: 11/09/19 08:26 Discharge Date: 11/11/19 Primary care physician: Jhon Taylor MD Consults: 11/09/19 06:00 Consult to Anesthesiology Routine Comment: Consulting Provider: Anesthesiologist Reason for consultation: Regional block for post operative pain control 11/09/19 13:27 Consult to Discharge Planning Routine Comment: Consult to Physical Therapy Evaluate & Treat Comment: Physician Instructions: postop TKA protocol Consult to Respiratory Therapy Evaluate & Treat Comment: Physician Instructions: Evaluate and treat Discharge provider: Frandy Matt PA-C Summary Hospital Course Discharge Diagnosis: Pre-op diagnosis: Severe right knee OA Post-op diagnosis: same Hospital Course: Procedure: Right total knee arthroplasty Same procedure as scheduled: Yes Indications: The patient has had progressively worsening right knee pain with radiographic changes consistent with arthritis. Non-operative management has failed and the patient has requested total knee replacement. The risks, benefits and alternatives to surgery were discussed with the patient prior to proceeding. Risks discussed included, but were not limited to, failure to relieve pain, stiffness, infection, nerve damage, deep venous thrombosis, pulmonary embolism, stroke, coma, heart attack, permanent paralysis and , as well as the potential need for eventual revision of the prosthetic. Surgeon: Jeni Vargas Hydropress Operator: Frandy Matt Anesthesia Type: General Operative Notes Findings: Severe right knee osteoarthritis, good stability Closure Type: primary Specimen(s): none sent Prosthetic devices, grafts, tissues, transplants, or devices: Vargas and Nephew [employer] BCS 2 size 7 femur, size 6 tibia, +9 poly, 38 mm oval patella Applied: drain(s) Estimated Blood Loss (mL): 250 Blood products transfused: none Tourniquet time (min): 69 Patient admitted to the hospital for right total knee arthroplasty. Patient consented to the same. Patient taken to the operating room underwent right total knee arthroplasty. Patient back in her room recovering well as in stable condition. Patient has worked with physical therapy. She will be discharged home in stable condition. Patient has her daughter home to assist her. Status at Discharge Cognitive/behavioral status at discharge: at baseline, oriented Functional status at discharge: uses cane/walker Overall status at discharge: patient is progressing back to baseline Time Spent with Patient Time spent: Less than 30 minutes Exam Vital Signs (past 8 hours): - 11/11/19 06:08 11/11/19 07:37 Temperature 98.9 F 98.5 F Pulse Rate 87 86 Respiratory Rate 16 16 Blood Pressure 118/62 112/51 L Pulse Oximetry 95 95 Oxygen Delivery Method Room Air Oxygen Flow Rate 0 Narrative Exam Narrative: Pleasant 79-year-old female resting comfortably in bed in no apparent distress. Right knee dressing is clean, dry and intact. Calf is soft and nontender. Motor functions intact distally. Sensation intact to light t ouch distal right lower extremity. Objective Labs Result Diagrams: 11/10/19 04:40 Discharge Plan Discharge Plan Patient Disposition: Home Discharge orders & Medications Prescriptions: Continued albuterol sulfate [Proventil HFA] 90 MCG/PUFF HFA aerosol inhaler 2 puff INH Q4H PRN (Reason: Shortness Of Breath) Qty: 0 RF: 0 azelastine 137 MCG/0.137 ML aerosol,spray 1 spray Intranasal DAILY PRN (Reason: Seasonal allergies) Qty: 0 RF: 0 fluticasone propionate 16 GM spray,suspension 1 spray Intranasal QDAY PRN (Reason: seasonal allergies) Qty: 0 RF: 0 omeprazole 20 MG capsule,delayed release(DR/EC) 20 mg PO DAILY PRN (Reason: GERD) Qty: 0 RF: 0 lorazepam 1 MG tablet 1 mg PO HS PRN (Reason: Sleep, anxiety) Qty: 0 RF: 0 ibuprofen 200 mg Capsule 200 mg PO Q6H PRN (Reason: Pain) RF: 0 Follow up/Referrals: Jhon Taylor MD [Primary Care Provider] - Jeni Vargas MD [Physician] - (1 wk) Diet/Activity/Treatments Diet: Diet as Tolerated Activity: Weightbearing as tolerated Cold/Heat Therapy: Apply ice as needed Other treatments: Ibuprofen 400 mg every 4 hours, Tylenol 500 mg every 4 hours, aspirin 81 mg twice a day. Oxycodone 5 mg 1-3 tabs as needed every 3 hours for pain Skin/Wound/Dressing Care Report to your healthcare provider any signs of infection, such as:: chills, fever, increased pain, unusual drainage and unusual redness Dressing: Keep dressing clean and dry, may remove Kevin wrap 48-72 hours after surgery Visit Report/Discharge Packet Instructions: DI for Knee Replacement, DI for Prescription Opioid Use Discharge Data Primary Care Provider: Jhon Taylor
--- NOTE | 2019-11-11 11:50 | PT.IPTN ---
Current Diagnoses Unilateral primary osteoarthritis, right knee (11/09/19) Surgery Performed Operation Date: 11/09/19 10:45 Actual Procedures p Total Knee Arthroplasty(Right) - Jeni Vargas MD Physical Therapy Treatment Note M2 PT-IP Current Condition Start: 11/09/19 15:00 Freq: NEEDED Status: Active Protocol: Document 11/09/19 16:03 AW (Rec: 11/09/19 16:48 AW [id number]) Physical Therapy Current Condition Current Condition Evaluation Date 11/09/19 Treatment Diagnosis s/p R TKA, impaired mobility Onset Date 11/09/19 Weight Bearing Status Weight Bearing Status Weight Bear as Tolerated M3 PT-IP Subjective Start: 11/09/19 15:00 Freq: NEEDED Status: Active Protocol: Document 11/11/19 11:50 AB (Rec: 11/11/19 13:42 AB [id number]) Subjective Physical Therapy Visit Type Type Treatment Note Visit Start Time 11:50 Visit Stop Time 12:19 Total Visit Minutes 29 Number of HAR[employer]KER Visits 0 Physical Therapy Visit Comments Patient Comments agreeable to do PT Therapy Pain Assessment Pain When Pain Assessed At Rest Pain Present Pain Present Pain Reported Location right knee Intensity 8 Scale Used Numeric (1 - 10) Pain Management Techniques Modification of Treatment,Re- positioning,Timing of Activity with Medications M4 PT-IP Mobility and Gait Start: 11/09/19 15:00 Freq: NEEDED Status: Active Protocol: Document 11/11/19 11:50 AB (Rec: 11/11/19 13:42 AB [id number]) PT-Bed Mobility Assessment Rolling Level of Assist Standby Assistance PT-Transfer Assessment Sit to and From Stand Sit to and from Stand Contact Guard Assistance,1 Person Assistance,Use of Upper Extremities Equipment Transfer Assistive Device Gait Belt,Front Wheeled Walker Orthotic/Prosthetic Devices or Brace: No Comments Mobility Comments completed sit<>stand x 2 reps and cues for techniques. pt requires cues with all tasks for techniques and safety. pt has difficulty remembering and does not remember her doing stair climbing / caregiver training with daughter yesterday. Gait Assessment Gait Gait Assistance Required: Standby Assistance,Contact Guard Assist Distance (Feet) 100 Able to Maintain Weight Bearing Status Yes During Gait Assistive Devices Assistive Device Gait Belt,Front Wheeled Walker Orthotic/Prosthetic Devices or Brace: No Gait Deviations General Gait Pattern Antalgic,Decreased Stride Length,Decreased Feet Clearance Factors Limiting Gait Function Factors Limiting Gait Function Decreased Strength,Limited Range of Motion,Pain,Poor Balance,Poor Safety Awareness Stair Climbing Assessment Evaluation Level of Assist On Stairs Minimal Assistance,Moderate Assistance,1 Person Assistance Devices Stair Climbing Assistive Devices Left Railing,Right Railing Technique/Endurance Stair Climbing Direction Ascend and Descend Stair Climbing Technique Step to Step Number of Steps Climbed 1 Stair Climbing Set # Repetitions (reps) 2 Comments Stair Climbing Comments pt stated that she only has one rail to use to get in/out of the house. pt refused to go out of the ICU unit to do stair climbing but agreed to do it in room with a step stool. completed up/down step stool using L rail mod A and cues. educated pt and instructed to hold on to rail with B hands and completed with R rail CGA and cues. pt agreed to sit up on chair afterwards. positioned on chair. set up lunch table. call light within reach. M5 PT-IP Objective Assessments Start: 11/09/19 15:00 Freq: NEEDED Status: Active Protocol: Document 11/09/19 16:03 AW (Rec: 11/09/19 16:48 AW [id number]) Orientation Orientation/Cognition Level of Alertness Alert Orientation Name,Day of Week,Place, Situation Language Function Ability No Deficits Noted Safety Awareness Understands Safety Issues Memory Description No Deficits Noted Comments Pt presents with signs of anxiety. Gross Range of Motion Upper Extremity ROM Assessment Within Functional Limits Lower Extremity ROM Assessment Right Impaired Strength Upper Extremity Strength Assessment Within Functional Limits Lower Extremity Strength Assessment Right Impaired Comments Strength Comments L LE grossly 4+/5 Coordination Assessment Gross Coordination Gross Coordination WNL Sensation Assessment Sensation Gross Sensation Right LE Impaired Light Touch Impaired Sensation Description Numbness Comments Sensation Comments Pt has not yet recovered full sensation after spinal. M6 PT-IP Treatment Start: 11/09/19 15:00 Freq: NEEDED Status: Active Protocol: Document 11/11/19 11:50 AB (Rec: 11/11/19 13:42 AB [id number]) Physical Therapy Treatment Exercises Exercises Heel Slides Education Education Provided Precautions,Safety M7 PT-IP Assessment and Plan Start: 11/09/19 15:00 Freq: NEEDED Status: Active Protocol: Document 11/11/19 11:50 AB (Rec: 11/11/19 13:42 AB [id number]) PT Summary Assessment and Plan Potential Rehabilitation Potential Good Summary Impairments Pain,ROM,Strength,Balance, Coordination,Sensation,Tone, Cognition,Bed Mobility, Transfers,Gait,Activity Tolerance Progress Towards Goals Progressing Toward Goals Assessment Summary pt requiring SBA to CGA with ambulation but requires min to mod A with stair climbing. caregiver training was conducted yesterday and pt's daughter was able to assist pt . pt plans to go home today. Goals Bed Mobility Goal Independent Transfer Goal Standby Assistance,Front Wheeled Walker Gait Goal Standby Assistance,Front Wheel Walker Gait Distance 150 Other Goals - up/down 16 steps with unilateral rail and [employer]PER[employer]OR/CGA on opposite side Frequency of Treatment Frequency Of Treatment Twice a Day Treatment Plan Physical Therapy Treatment Plan Bed Mobility Training,Transfer Training,Gait Training, Therapeutic Exercise,Balance Retraining,Post Op Education, Discharge Planning,Hot or Cold Pack,Manual Therapy Recommendations To Nursing Amount of Assist Needed 1 Person Assist Discharge Recommendations PT Discharge Recommendations Home with / Assist, Outpatient PT
--- NOTE | 2019-11-11 11:57 | PC.NURSE ---
Pt consistently rates pain 8/10 while awake. She is reluctant to take narcotic pain medications despite education. Administered scheduled tylenol/ibuprofen per order. Post med administration, pt was noted to be sleeping comfortably with eyes closed. Upon awakening, pt reports pain at 8/10. Administered oxycodone per order. Post administration, pt is noted to be resting comfortably with her eyes closed. Upon awakening, pt reports pain is improved but continues to rate 8/10. Pain mgmt was discussed by PA on rounds. PA instructs pt to take 1-3 tablets of oxydone 5 mg Q3H as needed for pain. Pt continues to be reluctant to take narcotic pain medications. Instructed on rest, ice, elevation, compression as well as importance of ROM and progressive mobility. Educated to tylenol/ibuprofen scheduling. She verbalizes understanding.
--- NOTE | 2019-11-11 11:59 | PM.CHAP ---
Good visit with pt. Anxious re recovery and rehab. Wants more reading material with explicit postop instructions.
[2019-11-11] MEDS: CYCLOBENZAPRINE 5 MG TABLET PO (12:48)
--- NOTE | 2019-11-11 14:10 | PC.NURSE ---
Pt d/c'd to home per order at 1408. Pt was provided with d/c packet, instructions, and education. Pt verbalizes understanding. Removed PIV with cath tip intact. Pt transferred independently from chair to w/c demonstrating proper use of fww. Update given to daughter regarding pain med regimen. Pt was escorted to POV by [employer] in no acute distress with all belongings.
== END 2019-11-11 14:08 | disposition home or self-care (01) ==
LOC: ICU 11-12 10:54 → AC 11-12 10:54 → OR 11-12 10:54 → ICU 11-13 09:12
PROVIDERS: Admitting Provider Orthopaedic Surgery; Family Provider Family Medicine; PCP Family Medicine; Visit Provider Orthopaedic Surgery
PROC: 0SRC0JZ Replacement of Right Knee Joint with Synthetic Substitute, Open Approach (ICD-10-PCS; CPT 27447; principal; 2019-11-09 10:45)
DX: M17.11 Unilateral primary osteoarthritis, right knee (principal); J45.909 Unspecified asthma, uncomplicated
CPT/HCPCS: 27447; 73560; 85014; 85018; 87797; 97110; 97116; 97161; 97530; C1776; G0378; C9290; J1100; J2250; J2274; J2405; J2704; J3010